=== PATIENT | female | born 1955 | race African-American/Black ===

== ENCOUNTER 2019-03-15 15:12 | Emergency (ER) | payer OTHER, BC, SELFPAY ==
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
[2019-03-15 15:30] VITALS: BP 208/125; PULSE 78; RESP 16; TEMP 36.4; O2SAT 99; BMI 32.3
[2019-03-15] MEDS: IBUPROFEN 400 MG TABLET 800 MG PO (16:37)
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
[2019-03-15 18:09] VITALS: BP 173/104; PULSE 88; O2SAT 98
== END 2019-03-15 18:16 | disposition home or self-care (01) ==
PROVIDERS: Emergency Provider Nurse Practitioner Family
DX: S90.02XA Contusion of left ankle, initial encounter (principal); S20.219A Contusion of unspecified front wall of thorax, initial encounter; V49.50XA Passenger injured in collision with unspecified motor vehicles in traffic accident, initial encounter
CPT/HCPCS: 71046; 73610; 99283